=== PATIENT | male | born 1955 | race Caucasian/White ===

== ENCOUNTER 2018-10-26 09:19 | Day surgery (SDC) | payer BC, MEDICARE ==
[2018-10-26] MEDS ORDERED: Xylocaine-Mpf 2 ML IJ ONE (09:20)
[2018-10-26] MEDS ORDERED: Ketamine HCl 50 MG/ML IV ONE (09:20)
[2018-10-26] MEDS ORDERED: DIPRIVAN 200 MG/20 ML IV ONE (09:20)
[2018-10-26] MEDS ORDERED: Xylocaine-Mpf 2% 5 Ml Vial IJ ONE (09:20)
[2018-10-26] MEDS ORDERED: Depo-Medrol 40 MG/ML IM ONE (09:20)
--- NOTE | 2018-10-26 13:36 | XRAY ---
Indication: Bilateral L5-S1 MBB. Intraoperative fluoroscopy was provided for 7 seconds. Single digital spot image submitted for interpretation demonstrates posterior needle tips projecting over the expected course of the left and right L5-S1 nerve roots. Correlate with intraoperative findings/report. Incidental bilateral L3-L4 facet screws.
--- NOTE | 2018-10-26 13:42 | XRAY ---
7 seconds fluoroscopy time in surgery for bilateral L5-S1 MBB.
[2018-10-26] MEDS ORDERED: Lactated Ringers 1,000 ML IV ONE (15:37)
== END 2018-10-26 11:03 | disposition home or self-care (01) ==
LOC: SDC-PAIN 09:19
PROVIDERS: ATTEND Psychiatry & Neurology Pain Medicine
DX: M47.816 Spondylosis without myelopathy or radiculopathy, lumbar region (principal); M46.96 Unspecified inflammatory spondylopathy, lumbar region; E11.9 Type 2 diabetes mellitus without complications; Z79.899 Other long term (current) drug therapy; J44.9 Chronic obstructive pulmonary disease, unspecified; K21.9 Gastro-esophageal reflux disease without esophagitis; E78.00 Pure hypercholesterolemia, unspecified
CPT/HCPCS: 64493; 64494; 72020; 77002; 82962; J1030; J1642; J2704

== ENCOUNTER → 2018-12-07 | Day surgery (SDC) | payer BC, MEDICARE ==
[~2018-12-07] MED LIST: DIPRIVAN 200 MG/20 ML IV ONE; Depo-Medrol 40 MG/ML IM ONE; Ketamine HCl 50 MG/ML IV ONE; Lactated Ringers 1,000 ML IV ONE; Marcaine 0.5% SDV 10 ML IJ ONE
--- NOTE | 2018-12-07 10:09 | XRAY ---
Indication: Bilateral L4-S1 MBB. Intraoperative fluoroscopy was provided for 9 seconds. Single digital spot image submitted for interpretation demonstrates posterior needle tips projecting over the expected course of the left and right L4-S1 nerve roots. Correlate with intraoperative findings/report. Incidental bilateral L3-L4 facet screws.
--- NOTE | 2018-12-07 10:09 | XRAY ---
9 seconds fluoroscopy time in surgery for bilateral L4-S1 MBB.
== END | disposition home or self-care (01) ==
LOC: SDC-PAIN 08:00
PROVIDERS: ATTEND Psychiatry & Neurology Pain Medicine
DX: M47.816 Spondylosis without myelopathy or radiculopathy, lumbar region (principal); E11.9 Type 2 diabetes mellitus without complications; J44.9 Chronic obstructive pulmonary disease, unspecified; M10.9 Gout, unspecified; E78.00 Pure hypercholesterolemia, unspecified; I10 Essential (primary) hypertension; E03.9 Hypothyroidism, unspecified; K21.9 Gastro-esophageal reflux disease without esophagitis
CPT/HCPCS: 64493; 64494; 72020; 77002; 82962; J1030; J1642; J2704

== ENCOUNTER 2019-01-18 07:46 | Day surgery (SDC) | payer BC, MEDICARE ==
[2019-01-18] MEDS ORDERED: Marcaine 0.5% SDV 10 ML IJ ONE (07:47)
[2019-01-18] MEDS ORDERED: Depo-Medrol 40 MG/ML IM ONE (07:47)
[2019-01-18] MEDS ORDERED: Xylocaine 1% Vial 30 ML PF IJ ONE (07:47)
[2019-01-18] MEDS ORDERED: DIPRIVAN 200 MG/20 ML IV ONE (09:46)
[2019-01-18] MEDS ORDERED: Ketamine HCl 50 MG/ML ONE (09:46)
--- NOTE | 2019-01-18 11:32 | XRAY ---
Indication: Right L4-S1 RFA. Intraoperative fluoroscopy was provided for 28 seconds. 3 digital spot images submitted for interpretation demonstrates posterior needle tips projecting over the expected course of the right L4-S1 nerve roots. Correlate with intraoperative findings/report. Incidental partially visualized bilateral L3 and L4 facet screws.
--- NOTE | 2019-01-18 11:35 | XRAY ---
28 seconds fluoroscopy time in surgery for right L4-S1 RFA.
[2019-01-18] MEDS ORDERED: Lactated Ringers 1,000 ML IV ONE (13:10)
== END 2019-01-18 10:30 | disposition home or self-care (01) ==
LOC: SDC-PAIN 07:46
PROVIDERS: ATTEND Psychiatry & Neurology Pain Medicine
DX: M47.816 Spondylosis without myelopathy or radiculopathy, lumbar region (principal); J44.9 Chronic obstructive pulmonary disease, unspecified; E03.9 Hypothyroidism, unspecified; K21.9 Gastro-esophageal reflux disease without esophagitis; Z79.899 Other long term (current) drug therapy
CPT/HCPCS: 64635; 64636; 72100; 77002; 82962; J1030; J1642; J2001; J2704

== ENCOUNTER 2019-02-08 09:34 | Day surgery (SDC) | payer BC, MEDICARE ==
[2019-02-08] MEDS ORDERED: Marcaine 0.5% SDV 10 ML IJ ONE (09:35)
[2019-02-08] MEDS ORDERED: Xylocaine 1% Vial 30 ML PF IJ ONE (09:35)
[2019-02-08] MEDS ORDERED: Depo-Medrol 40 MG/ML IM ONE (09:35)
[2019-02-08] MEDS ORDERED: DIPRIVAN 200 MG/20 ML IV ONE (10:18)
[2019-02-08] MEDS ORDERED: Ketamine HCl 50 MG/ML ONE (10:18)
--- NOTE | 2019-02-08 12:03 | XRAY ---
30 seconds fluoroscopy time in surgery for left L4-S1 RFA.
--- NOTE | 2019-02-08 12:04 | XRAY ---
Indication: Left L4-S1 RFA. Intraoperative fluoroscopy was provided for 30 seconds. 3 digital spot images submitted for interpretation demonstrates posterior needle tips projecting over the expected course of the left L4-S1 nerve roots. Correlate with intraoperative findings/report. Incidental partially visualized bilateral L3 and L4 facet screws.
[2019-02-08] MEDS ORDERED: Lactated Ringers 1,000 ML IV ONE (13:45)
== END 2019-02-08 11:05 | disposition home or self-care (01) ==
LOC: SDC-PAIN 09:34
PROVIDERS: ATTEND Psychiatry & Neurology Pain Medicine
DX: M47.816 Spondylosis without myelopathy or radiculopathy, lumbar region (principal); E11.9 Type 2 diabetes mellitus without complications; J44.9 Chronic obstructive pulmonary disease, unspecified; E78.00 Pure hypercholesterolemia, unspecified; K21.9 Gastro-esophageal reflux disease without esophagitis; E03.9 Hypothyroidism, unspecified; M10.9 Gout, unspecified; I10 Essential (primary) hypertension
CPT/HCPCS: 64635; 64636; 72100; 77002; 82962; J1030; J1642; J2001; J2704

== ENCOUNTER 2020-04-24 09:00 | Day surgery (SDC) | payer BC, MEDICARE ==
[~2020-04-24 09:00] MED LIST changes: -Depo-Medrol 40 MG/ML IM ONE; -Ketamine HCl 50 MG/ML IV ONE; +Ketamine HCl 50 MG/ML ONE; -Lactated Ringers 1,000 ML IV ONE; -Marcaine 0.5% SDV 10 ML IJ ONE
[2020-04-24] MEDS ORDERED: BUPIVACAINE 0.5% VIAL IJ ONE (09:01)
[2020-04-24] MEDS ORDERED: Depo-Medrol 40 MG/ML IM ONE (09:01)
--- NOTE | 2020-04-24 12:08 | XRAY ---
Indication: Bilateral L4-S1 MBB. Intraoperative fluoroscopy was provided for 14 seconds. Single digital spot image submitted for interpretation demonstrates posterior needle tips projecting over the expected left and right L4-S1 nerve roots. Correlate with intraoperative findings/report. Incidental bilateral L3 and L4 facet screws.
[2020-04-24] MEDS ORDERED: Lactated Ringers 1,000 ML IV ONE (13:48)
--- NOTE | 2020-04-24 16:55 | XRAY ---
14 seconds of fluoroscopy was used in surgery for a bilateral L4-L5, L5-S1 MBB.
== END 2020-04-24 10:47 | disposition home or self-care (01) ==
LOC: SDC-PAIN 09:00
PROVIDERS: ATTEND Psychiatry & Neurology Pain Medicine
DX: M47.816 Spondylosis without myelopathy or radiculopathy, lumbar region (principal); J44.9 Chronic obstructive pulmonary disease, unspecified; E03.9 Hypothyroidism, unspecified; K21.9 Gastro-esophageal reflux disease without esophagitis; E11.9 Type 2 diabetes mellitus without complications; Z79.899 Other long term (current) drug therapy; E78.00 Pure hypercholesterolemia, unspecified; I10 Essential (primary) hypertension; M10.9 Gout, unspecified
CPT/HCPCS: 64493; 64494; 72020; 77002; 82962; J1030; J1642; J2704

== ENCOUNTER 2020-05-22 09:11 | Day surgery (SDC) | payer BC, MEDICARE ==
[2020-05-22] MEDS ORDERED: Depo-Medrol 40 MG/ML IM ONE (09:12)
[2020-05-22] MEDS ORDERED: Sodium Chloride 0.9(Preservative Free) 10 ML IJ ONE (09:12)
[2020-05-22] MEDS ORDERED: BUPIVACAINE 0.5% VIAL IJ ONE (09:12)
[2020-05-22] MEDS ORDERED: Xylocaine 1% Vial 30 ML PF IJ ONE (09:12)
[2020-05-22] MEDS ORDERED: DIPRIVAN 200 MG/20 ML IV ONE (10:53)
[2020-05-22] MEDS ORDERED: Ketamine HCl 50 MG/ML ONE (10:53)
--- NOTE | 2020-05-22 12:52 | XRAY ---
Indication: Right L3-L5 transforaminal GEOFFREY. Intraoperative fluoroscopy was provided for 51 seconds. 4 digital spot images submitted for interpretation demonstrates posterior needle tips projecting over the expected right L3 and L4 nerve roots. Correlate with intraoperative findings/report. Incidental partially visualized bilateral L2-L4 facet screws.
--- NOTE | 2020-05-22 12:54 | XRAY ---
Indication: Right hip injection Intraoperative fluoroscopy was provided for 13 seconds. Single digital spot image obtained prone demonstrates posterior needle tip projecting lateral to the right femur neck. Small amount of contrast injected for needle tip placement. Correlate with intraoperative findings/report.
--- NOTE | 2020-05-22 12:56 | XRAY ---
13 seconds of fluoroscopy was used in surgery for a right intra-articular hip injection.
--- NOTE | 2020-05-22 12:56 | XRAY ---
51 seconds of fluoroscopy was used in surgery for a right L3-L4 and L4-L5 transforaminal GEOFFREY.
[2020-05-22] MEDS ORDERED: Lactated Ringers 1,000 ML IV ONE (15:42)
== END 2020-05-22 11:30 | disposition home or self-care (01) ==
LOC: SDC-PAIN 09:11
PROVIDERS: ATTEND Psychiatry & Neurology Pain Medicine
DX: M54.16 Radiculopathy, lumbar region (principal); M16.11 Unilateral primary osteoarthritis, right hip; E11.9 Type 2 diabetes mellitus without complications; J44.9 Chronic obstructive pulmonary disease, unspecified; E03.9 Hypothyroidism, unspecified; K21.9 Gastro-esophageal reflux disease without esophagitis; Z79.899 Other long term (current) drug therapy; I10 Essential (primary) hypertension
CPT/HCPCS: 20610; 64483; 64484; 72100; 73501; 77002; 77003; 82947; 82962; J1030; J1642; J2001; J2704; Q9966